=== PATIENT | male | born 1970 ===

== ENCOUNTER 2022-10-10 11:46 | Outpatient (CLI) | payer OTHER | END 2022-10-10 11:49 | disposition home or self-care (01) | LOC: SONOGRAMA 11:46 | PROVIDERS: ATTEND Pathology Anatomic Pathology & Clinical Pathology | DX: D34 Benign neoplasm of thyroid gland (principal); E04.9 Nontoxic goiter, unspecified; E04.1 Nontoxic single thyroid nodule ==